=== PATIENT | male | born 1945 | race Caucasian/White ===

== ENCOUNTER 2023-01-31 10:56 | Outpatient (OUT) | payer MEDICARE, SELFPAY ==
--- NOTE | 2023-01-31 11:16 | MR_ITS ---
The [address] [address] Patient Name: JERRY WADSWORTH MRN: [id number] date: 1945 Sex: M Assigned Patient Location: MRI Current Patient Location: MRI Accession/Order Number: [id number] Exam Date: 01/31/2023 11:16 Report Date: 02/05/2023 08:20 At the request of: NON-STAFF PHYSICIAN Procedure: MR abdomen wo con EXAM: MR abdomen without contrast/MRCP 01/31/2023. COMPARISON STUDY: CT of the abdomen and pelvis with contrast 01/25/2023 TECHNIQUE: Coronal T2, axial T1 in and out of phase, axial T2 with and without fat saturation as well as heavily fat-saturated coronal oblique thin and thick section T2-weighted images of the abdomen were obtained without the use of contrast. HISTORY: Abdominal Pain R10.9 FINDINGS: Postsurgical changes from discectomy with posterior syed and screw fixation at L4-L5. The hepatic lobe measures 21 cm superior to inferior. The spleen measures 14.4 cm superior to inferior. No gallstones, gallbladder wall thickening or pericholecystic fluid suspected. Bowel pattern does not appear to be obstructive. A lobulated subcapsular cyst near the liver dome on coronal image 15 measures 4.0 cm superior to inferior. Small right renal sinus cysts are noted. Asymmetric atrophic changes with multifocal cortical thinning and scarring predominantly at the inferior pole of the left kidney noted. The heart size is normal. Lung bases are clear. On axial imaging the multilobulated subcapsular cystic lesion at the liver dome contains fine thin internal septation. On image #6 of series 6 this measures 5.4 x 5.8 cm. Internal contents are increased in T1 and T2 signal intensity. There is no discrete solid component suspected otherwise. The adrenals appear unremarkable. Aorta demonstrates normal caliber. On the coronal T2-weighted images there is evidence of diverticular disease of the colon. This principally involves the descending sigmoid segments. A cyst within the medial segment left hepatic lobe on image 10, series 7 measures 9 mm. There is no intrahepatic or extrahepatic biliary ductal dilatation. Main pancreatic duct otherwise demonstrates normal caliber. Negative for choledocholithiasis or acute pancreatitis. There are small scattered cystic foci within the pancreas. One for example involving the pancreatic head, image 24 of series 7 measures 5 mm. A focus within the uncinate process caudal to this on image 29 measures 6 mm. Anteriorly about the pancreatic tail is a dominant focus measuring 12 x 13 mm. On coronal imaging this measures 18 mm superior to inferior. A small asymmetric nodule along the posterior margin of the lumen may be present on axial image 25 with transverse width of 6 mm. An upper pole left renal cyst measures 2.7 cm. There are 2 smaller adjacent intracortical cysts again noted. IMPRESSION: 1. There is a dominant subcapsular lobulated hemorrhagic/proteinaceous cyst containing fine thin internal septation at the liver dome as described. A benign-appearing smaller left hepatic cyst is also noted. Hepatomegaly. 2. Mild hepatomegaly 3. Small pancreatic cysts, largest extending anteriorly off the distal tail, 13 mm. Negative for acute hepatosplenomegaly duct demonstrates normal caliber. 4. No acute gallbladder disease. Negative for biliary ductal dilatation or choledocholithiasis. 5. Asymmetric atrophic changes of the left kidney with cortical thinning at the inferior pole again identified. There are multiple benign-appearing upper pole cysts again noted. 6. 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 Changes related to left-sided acute epiploic appendagitis are seen to better advantage on the recent CT examination. Electronically authenticated by: SRAVANI KRAMER Date: 02/05/2023 08:20
== END 2023-01-31 10:57 | disposition home or self-care (01) ==
PROVIDERS: PCP Family Medicine
DX: R10.9 Unspecified abdominal pain (principal)
CPT/HCPCS: 74181